=== PATIENT | female | born 1990 | race Two or more races ===

== ENCOUNTER 2024-04-19 05:07 | Emergency (ER) | payer OTHER, SELFPAY ==
[2024-04-19 05:08] VITALS: BMI 25.7
[2024-04-19 05:18] VITALS: BP 158/108; BP 160/142; PULSE 78; RESP 16; TEMP 37; O2SAT 98
--- NOTE | 2024-04-19 05:29 | XR_ITS ---
Examination: PA lateral chest 2 views Technique: Upright PA lateral chest 2 views Exam date and time: April 19, 2024 0532 hrs. Indications: Onset chest pain today Findings: Normal heart size. The lungs are clear. The osseous structures are intact Impression: No active disease
--- NOTE | 2024-04-19 05:30 | PD.EDRME ---
Rapid Medical Screening Exam RME Arrival date/time: 04/19/24 05:07 33-year-old female presents emergency department complaining of chest pain. Chief Complaint: Chest Pain Time Seen by Provider: 04/19/24 05:16 Vital signs: Vital Signs Temperature 98.6 F 04/19/24 05:18 Pulse Rate 78 04/19/24 05:18 Respiratory Rate 16 04/19/24 05:18 Blood Pressure 160/142 H 04/19/24 05:18 Pulse Oximetry (%) 98 04/19/24 05:18 Oxygen Delivery Method Room Air 04/19/24 05:18 Vital signs reviewed by provider: Yes
[2024-04-19] MEDS: ACETAMINOPHEN 500 MG TABLET 1000 MG PO (05:50)
--- NOTE | 2024-04-19 06:28 | EDNOTE_ITS ---
ED Chest Pain RME/HPI General Chief Complaint: Chest Pain Stated Complaint: CHEST AREA PAIN Time Seen by Provider: 04/19/24 05:16 Arrival date/time: 04/19/24 05:07 33-year-old female with history of anxiety presents to the emergency department today complaints of intermittent chest pain ongoing for the last couple of months patient is requesting a troponin level patient currently reports no chest pain or shortness of breath reports she does not want any other lab work there are no other associated symptoms or aggravating factors no other modifying factors, patient denies taking medication before coming to ER today Limitations: no limitations RME / HPI RME / HPI narrative: 04/19/24 05:07 33-year-old female presents emergency department complaining of chest pain. Related Data Allergies Allergy/AdvReac Type Severity Reaction Status Date / Time No Known Allergies Allergy Verified 04/19/24 05:41 Review of Systems Review of Systems Systems Reviewed: All systems reviewed, normal except as documented Constitutional Constitutional: Reports system reviewed and no additional complaints, except as documented, Denies fever(s) and Denies headache(s) Eyes Eyes: Reports system reviewed and no additional complaints, except as documented and Denies blurry vision ENT Ears, Nose, Mouth, and Throat: Reports system reviewed and no additional complaints, except as documented, Denies headache(s), Denies nasal congestion and Denies nasal discharge Cardiovascular Cardiovascular: Reports system reviewed and no additional complaints, except as documented, Reports chest pain and Denies dyspnea Respiratory Respiratory: Reports system reviewed and no additional complaints, except as documented, Denies chest congestion, Denies cough and Denies dyspnea Gastrointestinal Gastrointestinal: Reports system reviewed and no additional complaints, except as documented and Denies abdominal pain Integumentary/Breasts Skin/Breast: Reports system reviewed and no additional complaints, except as documented and Denies rash Neurologic Neurologic: Reports system reviewed and no additional complaints, except as documented, Reports as per HPI and Denies headache(s) Past Medical History Social History SMOKING STATUS: Current every day smoker ED Exam General Limitations: Present no limitations General appearance: Present alert and in no apparent distress Head Head exam: Present atraumatic, normocephalic and normal inspection Eye Eye exam: Present normal appearance, PERRL and EOMI; Absent conjunctival injection ENT ENT exam: Present normal exam, normal oropharynx and mucous membranes moist Neck Neck exam: Present normal inspection, full ROM and trachea midline Chest Chest inspection: Present normal inspection and symmetric chest wall rise Respiratory Respiratory exam: Present normal lung sounds bilaterally; Absent respiratory distress or wheezes Cardiovascular Cardiovascular exam: Present regular rate, normal rhythm and normal heart sounds; Absent bradycardia, tachycardia, irregular rhythm, systolic murmur or diastolic murmur Abdominal Exam Abdominal exam: Present soft and normal bowel sounds Extremities Exam Extremities exam: Present normal inspection and full ROM Back Exam Back exam: Present normal inspection and full ROM Neurological Exam Neurological exam: Present alert, oriented X3 and CN II-XII intact Psychiatric Psychiatric exam: Present normal affect and normal mood Skin Skin exam: Present warm, dry, intact and normal color Course Quality Measures none Orders Category Date Time Status EKG (ED ONLY) *Do not use* NOW Care 04/19/24 05:29 Completed EKG (ED Only) Stat Exams 04/19/24 05:29 Ordered XR chest 2V Stat Exams 04/19/24 05:29 Completed Drug Screen,Urine Stat Lab 04/19/24 06:03 Completed Troponin I Stat Lab 04/19/24 06:22 Completed Acetaminophen Tab [Tylenol ES Tab] Med 04/19/24 05:31 Discontinued 1,000 mg PO X1 ONE Vital Signs Vital signs: Vital Signs Temperature 98.6 F 04/19/24 05:18 Pulse Rate 78 04/19/24 05:18 Respiratory Rate 16 04/19/24 05:18 Blood Pressure 160/142 H 04/19/24 05:18 Pulse Oximetry (%) 98 04/19/24 05:18 Oxygen Delivery Method Room Air 04/19/24 05:18 O2 saturation 98% room air within normal limits Procedures -ED EKG Interpretation #1: Date of EK04/19/24 Time of EK:30 Rate: 74 Interpretation: Interpreted by me EKG Impression: Normal sinus rhythm, No acute ST-T changes, No ectopy, No ischemic changes, Normal QRS, Normal intervals and Normal axis Chest Pain MDM Narrative MDM Narrative:: 33-year-old female with history of anxiety presents to the emergency department today complaints of intermittent chest pain ongoing for the last couple of months patient is requesting a troponin level patient currently reports no chest pain or shortness of breath reports she does not want any other lab work there are no other associated symptoms or aggravating factors no other modifying factors, patient denies taking medication before coming to ER today On exam patient does not appear ill or toxic patient's not appear in acute distress On exam lungs are clear to auscultation patient has no murmurs no abnormal heart sounds EKG and chest x-ray obtained both of which are unremarkable Troponin obtained and is negative Patient discharged home in no distress to follow-up with primary care doctor in the next 24 to 48 hours and for any worsening symptoms to return to the ER immediately Patient data External records reviewed:: None Clinical information provided by:: patient Social determinants that could affect healthcare access:: none Patient has the following chronic illnesses:: None How is presenting disease/condition affected by chronic disease/condition?: no chronic disease Evaluation data The following diagnostics were reviewed and interpreted by me:: lab results, radiology exam(s) and EKG tracing(s) Lab and/or radiology exams considered but not ordered:: Labs, radiology, EKG obtained Interpretation Summary: Reviewed by me Medications / Prescriptions Medications or Prescriptions considered but not ordered:: Given Medication administrations:: Medication Administration History Discontinued Medications Acetaminophen (Acetaminophen 500 Mg Tablet) 1,000 mg PO X1 ONE Stop: 04/19/24 05:32 Last Admin: 04/19/24 05:50 Dose: 500 mg Documented By: CVL Given Consultations Consultation(s) initiated? (list below): No Diagnosis Chest Pain Differential Diagnosis: fracture of rib, pneumothorax, stable angina, costochondritis and chest pain Most likely diagnosis given after review of the tests above:: Anxiety Admission Indicated Admission indicated?: not indicated Admission Request Was there a request for admission?: No Disposition Plan Disposition Plan: Discharge Discharge Attestation Discharge Attestation: The patient and all family members were given an opportunity to ask questions and understood the discharge instructions. Discharge instructions specifically effects, indications for sooner follow up or return to the emergency department, and the expected course of current diagnosis. Patient condition: Stable Discharge Plan Plan Patient Disposition: HOME (Self Care) Disposition Comment: Stable Prescriptions/Referrals Referrals: Matt Dooley MD [Primary Care Provider] - In 1 week Problem List Clinical Impression: Chest pain, non-cardiac, Anxiety Patient/Caregiver Discharge Instructions Education Materials: ED Anxiety Reaction Additional Instructions: Please follow up with your primary care doctor in the next 24-48hrs for any worsening symptoms return here immediately Print Language: Portuguese Stand Alone Forms: Selene Award Info., Work/School Release, Patient Portal Info Letter PA/ELECTRICITY TRADING ANALYST Supervising Physician PA/ELECTRICITY TRADING ANALYST Supervising Physician: Dr. Light
[2024-04-19 07:31] LABS: Troponin I < 0.002 ng/mL (0.0-0.045)
[2024-04-19 07:31] LABS: Amphetamine/Methamp Scrn,U Negative (Negative); Barbiturate Screen,Urine Negative (Negative); Benzodiazepines Screen,Urine Negative (Negative); Benzoylecgonine Screen, Ur Negative (Negative); Fentanyl Screen,Urine Negative (Negative); Opiate Screen,Urine Negative (Negative); THC Screen,Urine Negative (Negative)
[2024-04-19 07:57] VITALS: BP 143/88; PULSE 73; RESP 16; TEMP 36.5; O2SAT 98
== END 2024-04-19 08:08 | disposition home or self-care (01) ==
PROVIDERS: Emergency Provider Emergency Medicine; PCP Family Medicine
DX: R07.89 Other chest pain (principal); F41.9 Anxiety disorder, unspecified
CPT/HCPCS: 36415; 71046; 80053; 80307; 84484; 84703; 85025; 93005; 99283; A9270